=== PATIENT | male | born 1965 | race Caucasian/White ===

== ENCOUNTER → 2017-04-20 | Day surgery (SDC) | payer OTHER ==
[~2017-04-20] MED LIST: ACETAMINOPHEN/HYDROcodone 325 MG/5 MG TAB ONE; BUPIVACAINE/EPINEPHRINE 0.25% PF 10 ML VIAL INFIL ONE; KETOROLAC TROMETHAMINE 30 MG/ML (IVP) VIAL IV PUSH ONE; LACTATED RINGER'S 1000 ML INJ 1,000 ML ONE; LIDOCAINE 1.5%/EPINEPHrine 1:200,000 PF SOLN 10ML SDV INFIL ONE; MIDAZOLAM HCL 2 MG/2 ML VIAL ONE; ONDANSETRON HCL 4 MG/2 ML VIAL IV PUSH ONE; PROPOFOL 200 MG/20 ML AMP IV ONE; ceFAZolin INJ 1,000 MG VIAL ONE
--- NOTE | 2017-04-20 13:56 | TN ---
cc: KARLEE KEENE M.D. 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 PROCEDURE Open left ulnar nerve release at the elbow. SURGEON Karlee Keene. ANESTHESIA General. ESTIMATED BLOOD LOSS Minimal. INDICATION This is a 51-year-old male with evidence of left ulnar neuropathy at the elbow. Investigative studies are consistent with the same. Despite conservative care he is painful and symptomatic. He presents now for surgical treatment. DETAILS OF PROCEDURE The patient was brought to the operating room and anesthetized in the supine position. The left arm was scrubbed with alcohol followed by Hibiclens followed by ChloraPrep and draped sterilely. Antibiotics were given within a one hour time window and a timeout was done. After exsanguination the tourniquet was inflated to 250 mmHg. A longitudinal incision was made over the ulnar nerve in the region of the medial epicondyle. The nerve was identified above the level of the joint. Very carefully this was opened. This was very tight going into the cubital tunnel. This was tracked going into the flexor compartment. The nerve was opened proximally and distally. At the end of the procedure I could see no evidence of nerve root compression. With full flexion the nerves tend to stay nicely in the cubital canal without subluxation of the medial epicondyle. The wound was irrigated copiously. Bipolar cautery was used for hemostasis. The wound was closed in layers with 2-0 Vicryl followed by 3-0 Vicryl and Steri-Strips. A sterile dressing was applied. The patient was awakened and taken to the recovery room in satisfactory condition. MD MANAS Emery/PRIYANK /1:36 PM /1:40 PM
== END | disposition home or self-care (01) ==
LOC: ESDC 10:54
PROVIDERS: ATTEND Orthopaedic Surgery Orthopaedic Surgery of the Spine
DX: G56.22 Lesion of ulnar nerve, left upper limb (principal)
CPT/HCPCS: 01710; 64718; J0690; J1885; J2250; J2405; J3010; J7120